=== PATIENT | female | born 1940 | race Caucasian/White ===

== ENCOUNTER 2016-12-22 09:31 | Outpatient (CLI) | payer MEDICARE, OTHER | END 2016-12-22 10:00 | LOC: POD 09:31 | PROVIDERS: ATTEND Podiatrist Public Medicine | DX: B35.1 Tinea unguium (principal); L60.0 Ingrowing nail; M79.674 Pain in right toe(s); M79.675 Pain in left toe(s) | CPT/HCPCS: 11721; G0463 ==

== ENCOUNTER 2017-02-15 09:46 | Outpatient (CLI) | payer MEDICARE, OTHER | END 2017-02-15 09:47 | LOC: RT 09:46 | PROVIDERS: ATTEND Family Medicine | DX: R00.1 Bradycardia, unspecified (principal) ==

== ENCOUNTER 2017-04-13 08:31 | Outpatient (CLI) | payer MEDICARE, OTHER | END 2017-04-13 08:32 | LOC: POD 08:31 | PROVIDERS: ATTEND Podiatrist Public Medicine | DX: B35.1 Tinea unguium (principal); L60.0 Ingrowing nail; M79.675 Pain in left toe(s); M79.674 Pain in right toe(s) | CPT/HCPCS: 11721; G0463 ==

== ENCOUNTER 2017-07-13 08:34 | Outpatient (CLI) | payer MEDICARE, OTHER | END 2017-07-13 08:35 | LOC: POD 08:34 | PROVIDERS: ATTEND Podiatrist Public Medicine | DX: B35.1 Tinea unguium (principal); L60.0 Ingrowing nail; M79.675 Pain in left toe(s); M79.674 Pain in right toe(s) | CPT/HCPCS: 11721; G0463 ==

== ENCOUNTER 2017-08-08 08:35 | Outpatient (CLI) | payer MEDICARE, OTHER ==
--- NOTE | 2017-08-08 14:20 | KNEE INJECTION WITH FLUORO ---
SUBJECTIVE: Emily presents today in follow up with osteoarthritis and bilateral knee pain with good relief previously with hyaluronic acid injection. PROCEDURE: Bilateral knee Synvisc One joint injection with fluoroscopic guidance. DESCRIPTION OF PROCEDURE: The risks and benefits of the injection were discussed with the patient, including the risks of infection, bleeding, and nerve injury. Furthermore, I discussed the risk of steroid exposure causing hyperglycemia, hypertension, osteoporosis, or increased infectious risks. The pt. understood these risks and agreed to proceed. Consent was obtained. The patient was positioned supine on fluoroscopic procedure table with the knees slightly bent. The knee joint was x-rayed and a number 23-gauge, 1-1/2- inch needle was placed in the left knee just medial to the infrapatellar ligament and in the knee joint. Omnipaque revealed adequate spread in the knee joint. Following this, 6 mL of Synvisc One hyaluronic acid was placed in the knee. In this exact same fashion, the contralateral knee was then also injected for bilateral knees with Synvisc One. The patient tolerated the procedure well. There were no apparent complications. A sterile dressing was applied. She was discharged in good condition. ASSESSMENT: Osteoarthritis of the knees FOLLOW UP: Return to clinic if problems develop or worsen. cc: Dr. Jr KRAUS
== END 2017-08-08 08:36 ==
LOC: OUT 08:35
PROVIDERS: ATTEND Anesthesiology Pain Medicine
DX: M17.0 Bilateral primary osteoarthritis of knee (principal)
CPT/HCPCS: 20611; 99213; G0463

== ENCOUNTER 2017-08-31 16:15 | Outpatient (CLI) | payer MEDICARE, OTHER ==
[2017-08-31 17:23] LABS: BASOPHILS % 0.5 (0.0-1.5); EOSINOPHILS % 0.9 % (0.0-6.8); MEAN CORPUSCULAR VOLUME 88.8 fl (80.0-100.0); MONOCYTES % 4.1 % (0.0-11.0); NEUTROPHILS # 4.6 # k/uL (1.4-7.7)
[2017-08-31 17:24] LABS: APPEARANCE,URINE Clear (CLEAR); COLOR,URINE Yellow (YELLOW); OCCULT BLOOD,URINE Trace-intact (NEGATIVE)
[2017-08-31 17:30] LABS: AMORPHOUS SEDIMENT,UR FEW (NEGATIVE)
--- NOTE | 2017-08-31 17:30 | Diagnostic Imaging Report ---
[facility] [id number] [facility] [address] [address] Report Submission Date: Aug 31, 2017 5:26:41 PM SENIOR INFORMATION SYSTEMS ARCHITECT Patient Study Name: BRONSON RAYMUNDO Date: Aug 31, 2017 5:00:52 PM SENIOR INFORMATION SYSTEMS ARCHITECT Modality Type: CR Gender: F Description: ABDOMEN : 40 Institution: [facility] Physician: TILA PEREZ - KRISS Examination: Obstruction series History: Abdominal discomfort Findings: 3 views obtained of the abdomen. No abnormal dilation of the large or small bowel. Air and stool throughout the large bowel. No suspicious calcification projecting over the renal fossa or the lower pelvic region. Left upper quadrant surgical clips. Osseous structures demonstrate degenerative changes. Impression: No obstruction. No suspicious calcifications by plain film sensitivity. Electronically signed on Aug 31, 2017 5:26:41 PM SENIOR INFORMATION SYSTEMS ARCHITECT by: Dequan KRAUS
[2017-08-31 17:37] LABS: eGFR (African) > 60; eGFR (Non-African) > 60
== END 2017-08-31 16:20 ==
LOC: LAB 16:15
PROVIDERS: ATTEND Family Medicine
DX: R10.12 Left upper quadrant pain (principal); I10 Essential (primary) hypertension; R35.0 Frequency of micturition
CPT/HCPCS: 36415; 74020; 80053; 81002; 83690; 85025

== ENCOUNTER 2017-10-12 08:22 | Outpatient (CLI) | payer MEDICARE, OTHER | END 2017-10-12 08:30 | LOC: POD 08:22 | PROVIDERS: ATTEND Podiatrist Public Medicine | DX: B35.1 Tinea unguium (principal); L60.0 Ingrowing nail; M79.674 Pain in right toe(s); M79.675 Pain in left toe(s); L84 Corns and callosities | CPT/HCPCS: 11721; G0463 ==

== ENCOUNTER 2017-12-20 08:21 | Outpatient (CLI) | payer MEDICARE, OTHER | END 2017-12-20 08:30 | LOC: OUT 08:21 | PROVIDERS: ATTEND General Practice | DX: N39.41 Urge incontinence (principal); N81.10 Cystocele, unspecified; N81.6 Rectocele; C43.9 Malignant melanoma of skin, unspecified | CPT/HCPCS: G0463 ==

== ENCOUNTER 2018-01-11 08:32 | Outpatient (CLI) | payer MEDICARE, OTHER | END 2018-01-11 08:33 | LOC: POD 08:32 | PROVIDERS: ATTEND Podiatrist Public Medicine | DX: B35.1 Tinea unguium (principal); L84 Corns and callosities; L60.0 Ingrowing nail; M79.674 Pain in right toe(s); M79.675 Pain in left toe(s) | CPT/HCPCS: 11721; G0463 ==

== ENCOUNTER 2018-01-17 08:50 | Outpatient (CLI) | payer MEDICARE, OTHER | END 2018-01-17 08:52 | LOC: OUT 08:50 | PROVIDERS: ATTEND General Practice | DX: N39.41 Urge incontinence (principal) | CPT/HCPCS: G0463 ==

== ENCOUNTER 2018-01-31 11:30 | Outpatient (CLI) | payer MEDICARE, OTHER ==
[2018-01-31] MEDS ORDERED: HYALURONATE SODIUM IU ONE (12:31)
--- NOTE | 2018-02-01 16:20 | KNEE HYALGAN INJECTION ---
SUBJECTIVE: I had the opportunity of following up with Emily Mcginnis today. This is a delightful 77-year-old white female with osteoarthritis and degenerative joint disease of the knees who presents today for bilateral knee Hyalgan injections. She has had Synvisc-One before and has had very good results with her knee pain ; however, we cannot get Synvisc-One approved for use of osteoarthritis of her knees any longer. PROCEDURE: Bilateral knee joint Hyalgan injection with fluoroscopy. DESCRIPTION OF DESCRIPTION: The risks and benefits of the injection were discussed with the patient, including the risks of infection, bleeding, and nerve injury. Furthermore, I discussed the risk of potential allergic reaction. The patient understood these risks and requested we proceed. Consent was obtained. The patient was placed in the prone position on the fluoroscopy table. The left knee was prepared. An AP and oblique fluoroscopic viewing was used for visualizing the knee joint. A 22-gauge, 3.5 spinal needle was introduced into the joint space from an anteromedial approach under direct fluoroscopic guidance. It was verified that there was no aspiration of fluid or blood. A total of 20 mg Hyalgan (sodium hyaluronate; 2ml) was subsequently injected into the joint space. The stylette was replaced into the needle and the needle was withdrawn from the knee. The skin was cleaned. In this exact same fashion, the contralateral knee was then injected with a second dose of 20 mg of Hyalgan. The patient tolerated the procedure without complications and was discharged from the clinic in good condition. ASSESSMENT: Bilateral knee osteoarthritis. PLAN: Bilateral knee joint Hyalgan (sodium hyaluronate) injection with fluoroscopic guidance today. FOLLOW UP: Return to clinic if problems develop or worsen. cc: Dr. Jr KRAUS
== END 2018-01-31 11:32 ==
LOC: OUT 11:30
PROVIDERS: ATTEND Anesthesiology Pain Medicine
DX: M17.0 Bilateral primary osteoarthritis of knee (principal)
CPT/HCPCS: J7321 ×2; 20610; 99213; G0463

== ENCOUNTER 2018-02-10 15:48 | Outpatient (CLI) | payer MEDICARE, OTHER | END 2018-02-10 15:50 | LOC: LAB 15:48 | PROVIDERS: ATTEND Family Medicine | DX: M13.0 Polyarthritis, unspecified (principal) | CPT/HCPCS: 85651; 86038; 86431 ==

== ENCOUNTER 2018-02-14 08:58 | Outpatient (CLI) | payer MEDICARE, OTHER | END 2018-02-14 09:00 | LOC: OUT 08:58 | PROVIDERS: ATTEND General Practice | DX: N39.41 Urge incontinence (principal) | CPT/HCPCS: G0463 ==

== ENCOUNTER 2018-02-28 11:24 | Outpatient (CLI) | payer MEDICARE, OTHER ==
[2018-02-28] MEDS ORDERED: Lidocaine 1% 5ml(IM or SUTURE)(PAIN CLINIC) ONE (11:30)
[2018-02-28] MEDS ORDERED: HYALURONATE SODIUM IU ONE ×2 (11:30→12:12)
--- NOTE | 2018-03-01 09:35 | KNEE HYALGAN INJECTION ---
SUBJECTIVE: Ms. Mcginnis presents today after Hyalgan injection in the knees x1. Her knee pain is much improved. She presents for bilateral knee Hyalgan #2. PROCEDURE: Bilateral knee joint Hyalgan injection with fluoroscopy. DESCRIPTION OF PROCEDURE: The risks and benefits of the injection were discussed with the patient, including the risks of infection, bleeding, and nerve injury. Furthermore, I discussed the risk of potential allergic reaction. The patient understood these risks and requested we proceed. Consent was obtained. The patient was placed in the prone position on the fluoroscopy table. The left knee was prepared. AP and oblique fluoroscopic viewing was used for visualizing the knee joint. A spinal needle was introduced into the joint space from an anteromedial approach under direct fluoroscopic guidance. It was verified that there was no aspiration of fluid or blood. A total of 20 mg Hyalgan (sodium hyaluronate; 2ml) was subsequently injected into the joint space. The stylette was replaced into the needle and the needle was withdrawn from the knee. The skin was cleaned. This exact same procedure was then repeated on the right knee. The patient tolerated the procedure without complications and was discharged from the clinic 15 minutes afterwards. ASSESSMENT: Osteoarthritis of the knees. PLAN: Bilateral knee joint Hyalgan (sodium hyaluronate) injection with fluoroscopic guidance: FOLLOW UP: Discharge instructions were given to the patient. Patient verbalizes understanding. cc: Dr. Jr KRAUS
== END 2018-02-28 11:25 ==
LOC: OUT 11:24
PROVIDERS: ATTEND Anesthesiology Pain Medicine
DX: M17.0 Bilateral primary osteoarthritis of knee (principal)
CPT/HCPCS: 99213; G0463; J7321

== ENCOUNTER 2018-03-29 08:56 | Outpatient (CLI) | payer MEDICARE, OTHER | END 2018-03-29 08:58 | LOC: POD 08:56 | PROVIDERS: ATTEND Podiatrist Public Medicine | DX: B35.1 Tinea unguium (principal); L84 Corns and callosities; L60.0 Ingrowing nail; M79.674 Pain in right toe(s); M79.675 Pain in left toe(s) | CPT/HCPCS: 11721; G0463 ==

== ENCOUNTER 2018-03-31 08:59 | Outpatient (CLI) | payer MEDICARE, OTHER ==
--- NOTE | 2018-03-31 11:50 | CONSULTATION REPORT ---
REFERRING PHYSICIAN: Dr. Jr Graham CONSULTING PHYSICIAN: Wyatt Parker MD REASON FOR CONSULT: Elevated rheumatoid factor. HISTORY OF PRESENT ILLNESS: Emily Mcginnis is a 77-year-old white woman who comes in with a complaint of finger pain. It involved the 2nd, 3rd, and 4th digits of both hands and associated manifestations were blistering of the skin and these have all resolved. At present, the patient is not having any significant joint pain or swelling. She has not developed any deformities. The context is that the patient, with malignant melanoma, has been on Opdivo, a checkpoint inhibitor. She continues with treatments. Again, at this time, the patient has minimal pain. She has no limitations in getting dressed, getting in and out of bed, walking, washing, or bending, PAST MEDICAL AND SURGICAL HISTORY: 1. Breast cancer. 2. Lung cancer. 3. Malignant melanoma. 4. Metastatic breast cancer. 5. Hypokalemia. 6. Bradycardia. 7. Hypertension. 8. Appendectomy. 9. Hernia repair. 10. Hysterectomy. 11. Lumpectomy, bilateral. 12. Right salpingo-oophorectomy. 13. Gastroesophageal reflux disease. 14. Rosacea. MEDICATIONS: 1. Imipramine HCL 25 mg 1 at bedtime. 2. Amlodipine 10 mg 1 at bedtime. 3. Aspirin. 4. Vitamin D3. 5. Vitamin B-12. 6. Hydrochlorothiazide/lisinopril 25/20 mg 1 daily 7. Metoprolol succinate 25 mg 1 daily. 8. Multivitamin. 9. Naproxen sodium 550 mg 1 daily. 10. Omeprazole 40 mg daily. 11. Potassium chloride 20 mEq daily. 12. Vitamin B6, 100 mg daily. 13. Vitamin E 400 international units 1 daily. ALLERGIES: 1. Ativan. 2. Doxycycline. SOCIAL HISTORY: The patient quit smoking 60 years ago. She does not drink. FAMILY HISTORY: Daughter has rheumatoid arthritis. REVIEW OF SYSTEMS: The patient complains of fatigue, some dry eyes, dry mouth, heartburn, some color changes in the hands and feet in the cold, hands sensitivity, difficulty sleeping; otherwise, no difficulty swallowing. No hoarseness. No coughing or wheezing. No diarrhea, constipation, dark stools, or bloody stools. No urinary symptoms. No skin rash at present. No swollen tender lymph nodes. PHYSICAL EXAMINATION: GENERAL: She looks well. VITAL SIGNS: Height: 4 feet 10 inches. Weight: 151 pounds. T: 97.1, R: 20 , heart rate 54, BP: 145/66. HEENT: Sclerae are anicteric. Conjunctivae are pink. No stomatitis or glossitis. LUNGS: Clear with no crackles or wheezing. HEART: Regular rate and rhythm. ABDOMEN: Soft and nontender. VASCULAR: No edema or cyanosis. PERIPHERAL JOINTS: DIPs, PIPs, MCPs, and wrists were unremarkable with no tenderness. Good accountant cost strength. No synovitis. She has bilateral elbow flexion contractures but no pain. Good range of motion at the shoulders. The AC/SC and TMJ joints are unremarkable. Hips are unremarkable. Her right knee had good range of motion. No tenderness. The left knee has a mild flexion deformity and some hard bony swelling but no synovitis. Ankles and MTPs were unremarkable. LABORATORY: Her rheumatoid factor was 14. Her sedimentation rate was basically normal. IMPRESSION: Polyarthritis. PLAN: At this time, I do not see evidence of active rheumatoid arthritis that we need to treat. The patient has been continuing therapy for metastatic malignant melanoma with Opdivo, a checkpoint inhibitor. These patients do develop immune -adverse events. She is doing well at this time. I have asked her to come and see me if she should develop any joint swelling or worsening symptoms. Thank you very much. cc: Dr. Jr KRAUS
== END 2018-03-31 12:19 ==
LOC: RHEU 08:59
PROVIDERS: ATTEND Internal Medicine
DX: M13.0 Polyarthritis, unspecified (principal)
CPT/HCPCS: 99214; G0463

== ENCOUNTER 2018-04-04 11:47 | Outpatient (CLI) | payer MEDICARE, OTHER ==
[2018-04-04] MEDS ORDERED: HYALURONATE SODIUM IU ONE (11:48)
[2018-04-04] MEDS ORDERED: Lidocaine 1% 5ml(IM or SUTURE)(PAIN CLINIC) ONE (11:48)
--- NOTE | 2018-04-06 18:35 | KNEE HYALGAN INJECTION ---
SUBJECTIVE: Ms. Mcginnis presents today with osteoarthritis and bilateral knee pain. She has had bilateral knee Hyalgan injections x2. She would like to continue the course of therapy. The right knee is much improved. The left knee is still bothering her and I told her we could do up to a series of 5. She is here for Hyalgan bilateral knee joint injection #3. PROCEDURE: Bilateral knee joint Hyalgan injection with fluoroscopy #3. DESCRIPTION OF PROCEDURE: The risks and benefits of the injection were discussed with the patient, including the risks of infection, bleeding, and nerve injury. Furthermore, I discussed the risk of potential allergic reaction. The patient understood these risks and requested we proceed. Consent was obtained. The patient was placed in the prone position on the fluoroscopy table. The left knee was prepared. AP and oblique fluoroscopic viewing was used for visualizing the knee joint. A spinal needle was introduced into the joint space from an anteromedial approach under direct fluoroscopic guidance. It was verified that there was no aspiration of fluid or blood. A total of 20 mg Hyalgan (sodium hyaluronate; 2ml) was subsequently injected into the joint space. The stylette was replaced into the needle and the needle was withdrawn from the knee. The skin was cleaned and a bandage was applied. The exact same procedure was then repeated on the contralateral side. The patient tolerated the procedure without complications and was discharged from the clinic 15 minutes afterwards. ASSESSMENT: Degenerative Joint Disease affecting the knee. PLAN: Bilateral knee joint Hyalgan (sodium hyaluronate) injection with fluoroscopic guidance: FOLLOW UP: Return to clinic if problems develop or worsen. cc: Dr. Jr KRAUS
== END 2018-04-04 11:50 ==
LOC: OUT 11:47
PROVIDERS: ATTEND Anesthesiology Pain Medicine
DX: M17.0 Bilateral primary osteoarthritis of knee (principal)
CPT/HCPCS: 20610; 99214; G0463; J7321

== ENCOUNTER 2018-04-18 08:42 | Outpatient (CLI) | payer MEDICARE, OTHER ==
[2018-04-18] MEDS ORDERED: HYALURONATE SODIUM IU ONE (10:54)
--- NOTE | 2018-04-21 14:15 | KNEE HYALGAN INJECTION ---
SUBJECTIVE: Ms. Mcginnis follows up today for bilateral knee Hyalgan injection #4. She has done very well after injection number 3. She said most of the knee pain has resolved. She would like to have the 4th one done today and then our follow up will be on an as-needed basis. PROCEDURE: Left knee joint Hyalgan injection with fluoroscopic guidance. DESCRIPTION OF PROCEDURE: The risks and benefits of the injection were discussed with the patient, including the risks of infection, bleeding, and nerve injury. Furthermore, I discussed the risk of potential allergic reaction. The patient understood these risks and requested we proceed. Consent was obtained. The patient was placed in the prone position on the fluoroscopy table. The left knee was prepared. AP and oblique fluoroscopic viewing was used for visualizing the knee joint. A spinal needle was introduced into the joint space from an anteromedial approach under direct fluoroscopic guidance. It was verified that there was no aspiration of fluid or blood. Hyalgan (sodium hyaluronate; 2ml) was subsequently injected into the joint space. The stylette was replaced into the needle and the needle was withdrawn from the knee. The skin was cleaned. This exact same procedure was repeated on the contralateral knee. The patient tolerated the procedure without complications and was discharged from the clinic 15 minutes afterwards. ASSESSMENT: Osteoarthritis of bilateral knees. PLAN: Left knee joint Hyalgan (sodium hyaluronate) injection with fluoroscopic guidance today. FOLLOW UP: Discharge instructions were given to the patient. Patient verbalizes understanding. Return to clinic if problems develop or worsen. cc: Dr. Jr KRAUS
== END 2018-04-18 08:44 ==
LOC: OUT 08:42
PROVIDERS: ATTEND Anesthesiology Pain Medicine
DX: M17.0 Bilateral primary osteoarthritis of knee (principal)
CPT/HCPCS: 99213; G0463; J7321

== ENCOUNTER 2018-12-19 12:20 | Emergency (ER) | payer MEDICARE, OTHER ==
[2018-12-19] MEDS ORDERED: OLANZapine 5 MG TABLET PO ONE (13:17)
--- NOTE | 2018-12-19 13:46 | ED Physician Documentation ---
General Adult - HISTORIAN Historian: patient - HPI Stated Complaint: port accessed and not removed after dr medina Chief Complaint: General Adult Additional Information: Patient presents to ED with venous port accessed after oncology appointment today. She states she got to talking to staff and left with the port still accessed. Onset: hours (1) Timing: still present Further Comments: no - ROS CONST: no problems EYES/ENT: none CVS/RESP: none GI/: none MS/SKIN/LYMPH: none NEURO/PSYCH: denies: dizziness - PAST HX Past History: none Other History: none Surgeries/Procedures: none Allergies/Adverse Reactions: Allergies Allergy/AdvReac Type Severity Reaction Status Date / Time doxycycline Allergy Intermediate GI upset Verified 12/19/18 12:42 Home Medications: Ambulatory Orders Medication Instructions Recorded Acetaminophen [Tylenol] 08/22/14 Aspirin [Amanda] 81 mg PO 08/22/14 Cholecalciferol [Vitamin D-3] 2,000 intlu 08/22/14 Clonidine HCl [Clonidine HCl ER] 0.1 mg PO 08/22/14 Cyanocobalamin [Vitamin B-12] 1,000 mcg PO DAILY 08/22/14 Diclofenac Sodium [Solaraze] 50 gm TP 08/22/14 Lisinopril/Hydrochlorothiazide 1 each PO 08/22/14 [Zestoretic 20-12.5 Tablet] Naproxen [Naprosyn] 375 mg PO PRN 08/22/14 Potassium Chloride [Klor-Con M20] 20 meq PO BID 08/22/14 Pyridoxine HCl [Vitamin B-6] 100 mg PO DAILY 08/22/14 Vitamin E (Dl,Tocopheryl Acet) 400 unit PO QD 08/22/14 [Vitamin E] amLODIPine BESYLATE [Norvasc] 5 mg PO 0900 08/22/14 - SOCIAL HX Smoking History: non-smoker Alcohol Use: none Drug Use: none - FAMILY HX Family History: No - VITAL SIGNS Vital Signs: Vital Signs Temp Pulse Resp BP Pulse Ox 98.2 F 94 H 16 159/70 98 12/19/18 12:30 12/19/18 12:30 12/19/18 12:30 12/19/18 12:30 12/19/18 12:30 - REVIEWED ASSESSMENTS Nursing Assessment Reviewed: Yes Vitals Reviewed: Yes ED Results Lab/Radiology - Orders Orders: ED Orders Category Date Time Status OLANZapine [Zyprexa] Med 12/19/18 13:17 Discontinued 5 mg PO NOW ONE General Adult Physical Exam - PHYSICAL EXAM GENERAL APPEARANCE: no distress EENT: MIKE NECK: normal inspection, supple RESPIRATORY: no resp distress, chest non-tender CVS: reg rate & rhythm ABDOMEN: soft BACK: normal inspection SKIN: warm/dry EXTREMITIES: non-tender NEURO: oriented X3 Discharge Clincal Impression: Port-A-Cath in place Referrals: Jr Graham MD [Primary Care Provider] - 2 Days Additional Instructions: 1. Follow up with Oncology as already scheduled 2. Return to ER for new or worsening symptoms Condition: Stable Disposition: 01 HOME, SELF-CARE Decision to Admit: NO Date of Decison to Admit: 12/19/18 Decision Time: 14:18
[2018-12-19] MEDS ORDERED: SALINE FLUSH 10 ML DISP.SYRIN IV PRN (13:49)
[2018-12-19] MEDS: HEPARIN SODIUM 500 UNIT/5 ML DISP.SYRIN IV ONE (14:05)
[2018-12-19 14:18] VITALS: BP 163/82
== END 2018-12-19 14:15 | disposition home or self-care (01) ==
LOC: ED 12:20
DX: Z45.2 Encounter for adjustment and management of vascular access device (principal)
CPT/HCPCS: 36589; 96374; 99283; 99284; J1642

== ENCOUNTER 2019-10-26 14:36 | Outpatient (CLI) | payer MEDICARE, OTHER ==
[2019-10-26 14:51] LABS: eGFR (Non-African) > 60
== END 2019-10-26 14:41 ==
LOC: LABRHC 14:36
PROVIDERS: ATTEND Family Medicine
DX: I10 Essential (primary) hypertension (principal)
CPT/HCPCS: 80053; 85027